=== PATIENT | female | born 1950 | race Caucasian/White ===

== ENCOUNTER 2022-11-17 12:36 | Day surgery (SDC) | payer MEDICARE, BC ==
[~2022-11-17 12:36] MED LIST: Lactated Ringers 1,000 ML IV SCH
[2022-11-17] MEDS ORDERED: fentaNYL 100 MCG/2 ML SDV ONE (13:38)
[2022-11-17] MEDS ORDERED: Propofol 200 MG/20 ML SDV ONE (13:38)
[2022-11-17] MEDS ORDERED: Lidocaine 2% 5 ML SDV ONE (13:38)
[2022-11-17] MEDS ORDERED: Famotidine 20 MG/2 ML SDV ONE (14:54)
[2022-11-17 15:43] VITALS: BP 129/98; PULSE 105
== END 2022-11-17 15:55 | disposition home or self-care (01) ==
LOC: MW.SDS 12:36
PROVIDERS: ATTEND Surgery
DX: K21.00 Gastro-esophageal reflux disease with esophagitis, without bleeding (principal); K29.50 Unspecified chronic gastritis without bleeding; K44.9 Diaphragmatic hernia without obstruction or gangrene; F41.9 Anxiety disorder, unspecified; J30.9 Allergic rhinitis, unspecified; M19.90 Unspecified osteoarthritis, unspecified site; F32.A Depression, unspecified; K21.9 Gastro-esophageal reflux disease without esophagitis; I10 Essential (primary) hypertension; K58.9 Irritable bowel syndrome, unspecified; M81.0 Age-related osteoporosis without current pathological fracture; D64.9 Anemia, unspecified; Z79.899 Other long term (current) drug therapy; Z79.82 Long term (current) use of aspirin; Z88.8 Allergy status to other drugs, medicaments and biological substances; Z88.5 Allergy status to narcotic agent; Z88.1 Allergy status to other antibiotic agents; Z91.018 Allergy to other foods; Z98.890 Other specified postprocedural states; Z96.659 Presence of unspecified artificial knee joint
CPT/HCPCS: 43239; J2704; J3010; J3490; J7120; 00731; 88305; 88342; 99100